=== PATIENT | male | born 1985 | race African-American/Black ===

== ENCOUNTER 2017-03-22 21:59 | Emergency (ER) | payer SELFPAY ==
[~2017-03-22] VITALS: Ht 175.3 cm; Wt 76.0 kg
[2017-03-22 22:04] VITALS: BP 148/94
[2017-03-22] MEDS ORDERED: CEFAZOLIN SODIUM 1000MG/VIAL IM ONE (23:30)
[2017-03-22] MEDS ORDERED: BACITRACIN ZINC OINT UDPKT TOP ONE (23:30)
[2017-03-23] MEDS ORDERED: STERILE WATER FOR INJECTION 10ML VIAL ONE (00:08)
== END 2017-03-23 02:37 | disposition home or self-care (01) ==
LOC: ER 22:13
DX: L03.211 Cellulitis of face (principal); L02.01 Cutaneous abscess of face; I10 Essential (primary) hypertension; G40.909 Epilepsy, unspecified, not intractable, without status epilepticus; J45.909 Unspecified asthma, uncomplicated; F17.200 Nicotine dependence, unspecified, uncomplicated; Z53.29 Procedure and treatment not carried out because of patient's decision for other reasons
CPT/HCPCS: 96372; 99283; A4216; J0690; Z7610

== ENCOUNTER 2017-04-08 23:21 | Emergency (ER) | payer MEDICAID ==
[~2017-04-08] VITALS: Ht 175.3 cm; Wt 75.0 kg
[2017-04-08] MEDS ORDERED: ALBUTEROL (0.083%) 2.5MG/3ML NEB HHN STA (23:58)
[2017-04-08] MEDS ORDERED: IPRATROPIUM BROMIDE (0.02%) 0.5MG/2.5ML NEB HHN STA (23:58)
[2017-04-08] MEDS ORDERED: PREDNISONE 20MG TABLET PO STA (23:58)
[2017-04-09] MEDS ORDERED: ALBUTEROL (0.5%) 2.5MG/0.5ML NEB HHN ONE (00:19)
[2017-04-09 01:25] VITALS: BP 158/98
== END 2017-04-09 01:50 | disposition home or self-care (01) ==
LOC: ER 23:31
DX: J45.901 Unspecified asthma with (acute) exacerbation (principal); F17.200 Nicotine dependence, unspecified, uncomplicated
CPT/HCPCS: 71045; 94644; 99285; J7512; J7611